=== PATIENT | female | born 1980 | race Caucasian/White ===

== ENCOUNTER 2019-02-07 14:49 | Emergency (ER) | payer OTHER, MEDICAID ==
[2019-02-07] MEDS ORDERED: CYCLOBENZAPRINE HCL 10 MG TABLET PO ONE (16:39)
[2019-02-07] MEDS ORDERED: KETOROLAC TROMETHAMINE 60 MG/2 ML SDV IM ONE (16:39)
[2019-02-07] MEDS ORDERED: LIDOCAINE 5% (700 MG) TRANSDERMAL ADH..PATCH TP ONE (16:39)
--- NOTE | 2019-02-07 17:05 | RADIOLOGY REPORT (SQ) ---
EXAM DESCRIPTION: L SPINE WHOLE COMPLETED DATE/TIME: 02/07/2019 4:50 pm REASON FOR STUDY: pain COMPARISON: None. NUMBER OF VIEWS: Five views including obliques. TECHNIQUE: AP, lateral, oblique, and sacral radiographic images acquired of the lumbar spine. LIMITATIONS: None. FINDINGS: MINERALIZATION: Normal. SEGMENTATION: Normal. No transitional anatomy. ALIGNMENT: Normal. VERTEBRAE: Maintained height. No fracture or worrisome bone lesion. DISCS: Preserved height. No significant osteophytes or end plate irregularity. POSTERIOR ELEMENTS: Mild to moderate facet sclerosis or arthrosis at L5-S1. Pedicles are intact. N o pars defect or posterior arch defects. HARDWARE: None in the spine. PARASPINAL SOFT TISSUES: Normal. PELVIS: Intact as visualized. No fractures or worrisome bone lesions. SI joints intact. Bilateral tu bal ligation clips. OTHER: No other significant finding. IMPRESSION: 1. No acute osseous findings. 2. Mild to moderate facet sclerosis or arthrosis at L5-S1. TECHNICAL DOCUMENTATION: JOB ID: [id number] [employer]- All Rights Reserved Reading location - IP/workstation name: [email or web address]
--- NOTE | 2019-02-07 17:31 | ER Document Report ---
HPI - HPI Patient complains to provider of: back pain Time Seen by Provider: 02/07/19 16:10 Pain Level: 4 Context: Patient is an otherwise healthy 38-year-old female presents to the emergency department with generalized lumbar back pain. Patient states on she was in the car for over 7 hours. States then again on Wednesday she had a [address] and then again on Wednesday she had another [address] Patient's denying any injury but states she may have "twisted wrong" getting in and out of the vehicle. States there is a evening after the [address] she noticed that she had generalized lumbar back pain. States that is increased since. Patient's denying any numbness or tingling in any extremity, she is denying any urinary retention, loss of bowel or bladder. States she has generalized pain right over the spine and her lumbar region in the somewhat radiating into bilateral buttock. Patient's denying any fever, denying any IV drug use in the past, denies any rashes. - CONSTITUTIONAL Constitutional: DENIES: Fever, Chills - REPRODUCTIVE Reproductive: DENIES: : Past Medical History - General Information source: Patient - Social History Smoking Status: Current Every Day Smoker Chew tobacco use (# tins/day): No Frequency of alcohol use: None Drug Abuse: None Family History: Reviewed & Not Pertinent Patient has suicidal ideation: No Patient has homicidal ideation: No Renal/ Medical History: Denies: Hx Peritoneal Dialysis Vertical Provider Document - CONSTITUTIONAL Agree With Documented VS: Yes Notes: GENERAL: Alert, interacts well. No acute distress. HEAD: Normocephalic, atraumatic. EYES: Pupils equal, round, and reactive to light. Extraocular movements intact. ENT: Oral mucosa moist, tongue midline. NECK: Full range of motion. Supple. Trachea midline. LUNGS: Clear to auscultation bilaterally, no wheezes, rales, or rhonchi. No respiratory distress. HEART: Regular rate and rhythm. No murmur ABDOMEN: Soft, non-tender. Non-distended. Bowel sounds present in all 4 quadrants. EXTREMITIES: Moves all 4 extremities spontaneously. No edema, normal radial and dorsalis pedis pulses bilaterally. No cyanosis. 5 out of 5 strength all 4 extremities. No pain in bilateral calfs, no pain upon flexion or extension of bilateral ankles. BACK: no cervical, thoracic midline tenderness. No saddle anesthesia, normal distal neurovascular exam. Patient has generalized lumbar spinal tenderness as well as slight bilateral paraspinal tenderness radiating into bilateral buttocks. NEUROLOGICAL: Alert and oriented x3. Normal speech. cranial nerves II through XII grossly intact PSYCH: Normal affect, normal mood. SKIN: Warm, dry, normal turgor. No rashes or lesions noted. - INFECTION CONTROL TRAVEL OUTSIDE OF THE [place] IN LAST 30 DAYS: No Course - Re-evaluation Re-evalutation: 02/07/19 17:28 Patient's denying any history of PE or DVT or any other anti-coagulopathies. Patient denies pain in either extremity to include in her calves bilaterally. Patient's x-rays are as follows: Lumbar Spine X-Ray 02/07/19 16:38 IMPRESSION: 1. No acute osseous findings. 2. Mild to moderate facet sclerosis or arthrosis at L5-S1. I discussed with patient these results at bedside. Discussed use of muscle relaxers, analgesics [id number] and Lidoderm [id number] patches. Patient voices understanding, stable for discharge. Presentation of a well appearing patient complaining of acute back pain. No rapid progression of symptoms, systemic symptoms including fevers, chills, weight loss, history of recent bacterial infection, bilateral symptoms, numbness, weakness, difficulty walking, urinary retention or bowel incontinence, personal history of cancer, immunosuppression, diabetes, known AAA, or history of IV drug use. Exam is without pulsatile abdominal mass, and patient has symmetric and intact lower extremity strength, sensation, and reflexes without clonus. 2+ symmetric medial malleolar and dorsalis pedis pulses Based on history and physical, I have a very low suspicion of a concerning etiology of pain including epidural compression syndrome, spinal infection, transverse myelitis, malignancy, abdominal aortic aneurysm, renal colic, acute lower extremity claudication, neurogenic claudication, ankylosing spondylitis, or other intra-abdominal process. - Vital Signs Vital signs: Temp Pulse Resp BP Pulse Ox 98.1 F 97 18 139/90 H 99 02/07/19 14:55 02/07/19 14:55 02/07/19 14:55 02/07/19 14:55 02/07/19 14:55 Discharge - Discharge Clinical Impression: Lumbar back pain Condition: Stable Disposition: HOME, SELF-CARE Instructions: Warm Packs ([facility]), Low Back Pain ([facility]), Muscle Strain ([facility]) Additional Instructions: You have been seen in the Emergency Department (ED) today for back pain. Your workup and exam have not shown any acute abnormalities and you are likely suffering from muscle strain or possible problems with your discs, but there is no treatment that will fix your symptoms at this time. Please take the naproxen that has been prescribed as directed. You should also purchase a local lidocaine cream such as "aspercreme with lidocaine" and use per bottle instructions to the affected area. Apply heat to the area as often as you are able. Continue to keep active and avoid prolonged periods of bed rest. Please follow up with your doctor as soon as possible regarding today's ED visit and your back pain. Return to the ED for worsening back pain, fever, weakness or numbness of either leg, or if you develop either (1) an inability to urinate or have bowel movements, or (2) loss of your ability to control your bathroom functions (if you start having "accidents"), or if you develop other new symptoms that concern you.concern you. Prescriptions: Cyclobenzaprine HCl [Flexeril 10 mg Tablet] 10 mg PO TIDP PRN #15 tab PRN Reason:
[2019-02-07 17:51] VITALS: BP 121/78
== END 2019-02-07 17:52 | disposition home or self-care (01) ==
LOC: ER 14:49
DX: M54.5 Low back pain (principal); F17.200 Nicotine dependence, unspecified, uncomplicated
CPT/HCPCS: 99283; 96372; 72110; J1885